=== PATIENT | male | born 1950 | race Caucasian/White ===

== ENCOUNTER 2023-03-11 11:25 | Emergency (ER) | payer MEDICARE, SELFPAY ==
[2023-03-11 11:31] VITALS: BP 181/80; PULSE 78; RESP 16; TEMP 36.6; O2SAT 96
--- NOTE | 2023-03-11 11:59 | ED_ITS ---
HPI - Male Genitourinary General: Chief complaint: Urogenital-Male Stated complaint: urinary trac Time Seen by Provider: 03/11/23 11:50 History of Present Illness: Patient presents to the hospital with complaints of not being able to empty his bladder. Patient states he only dribbles a little bit of time and 5 minutes later is got to dribble again. Patient states he feels like he has pressure all the time but does not empty. This been ongoing problem for about 8 years. Patient is tried Flomax and is talked to his family doctor about this but he does not do well with Flomax or any of the other type of medicines per the patient. Patient has not seen urology. Review of Systems General: Reports: 10 or more systems reviewed and unremarkable except in HPI and below Physical Exam Const: COMMON NORMALS: no acute distress, average body habitus, patient oriented x3, no limitations, healthy appearing, alert and well nourished HENMT: COMMON NORMALS: normocephalic, atraumatic, hearing grossly normal bilaterally, external ears normal, Normal external nose present, moist oral mucous membranes and oropharynx normal HEAD & SCALP: normocephalic and atraumatic NOSE: Normal external nose present EXTERNAL EAR: Yes external ears normal Neck/C-Spine: COMMON NORMALS: no JVD Chest: COMMONS NORMALS: normal inspection of the chest and normal palpation of entire chest wall Resp: COMMON NORMALS: normal respiratory effort, No retractions, No use of accessory muscles and clear to auscultation bilaterally AUSCULTATION: clear to auscultation bilaterally Cardio: COMMON NORMALS: no JVD, regular rate, regular rhythm, S1 normal heart sound present, S2 normal heart sound present, No gallops present (Cardio), No clicks present (Cardio), No murmurs present (Cardio) and No rub (Cardio) RATE: regular rate RHYTHM: regular rhythm HEART SOUNDS: S1 normal heart sound present and S2 normal heart sound present GI: COMMON NORMALS: Normal to inspection, nondistended, normoactive bowel sounds present, Soft to palpation, non-tender, No hepatosplenomegaly present and no masses PALPATION: Yes Soft to palpation and Yes No hepatosplenomegaly present Neuro: COMMON NORMALS: patient oriented x3 SENSORIUM/ORIENTATION: Yes alert Course Vital Signs: Vital signs: Vital Signs Temperature 97.9 F 03/11/23 11:31 Pulse Rate 62 03/11/23 13:35 Respiratory Rate 16 03/11/23 11:31 Blood Pressure 166/88 03/11/23 13:35 Pulse Oximetry 98 03/11/23 13:35 Oxygen Delivery Me thod Room Air 03/11/23 13:35 MDM - Male Medical Decision Making Patient been having urinary retention type problems for many years. Today his postvoid bladder scan revealed 124 cc. We will refer to urology CBC CMP and UA was negative today. Patient's had none of the medicines for urinary retention or BPH work for him. Patient denies wanting a urinary catheter now. We will try to get him into the urologist at [place] at the next available. Differential Diagnosis Likely acute retention of urine; Unlikely urinary tract infection, priapism, urethritis, epididymitis, genital herpes simplex, prostatitis or inguinal hernia Medical Records I reviewed the patient's medical records. Lab Data I reviewed the patient's lab results. 03/11/23 12:06 03/11/23 12:06 Laboratory Results WBC 6.14 10^3/uL (3.29-11.43) 03/11/23 12:06 RBC 5.58 10^6/uL (3.85-5.65) 03/11/23 12:06 Hgb 16.30 g/dL (11.27-16.99) 03/11/23 12:06 Hct 49.7 % (37-53) 03/11/23 12:06 MCV 89.1 fl (82-101) 03/11/23 12:06 MCH 29.2 pg (27-33) 03/11/23 12:06 MCHC 32.8 g/dL (30-55) 03/11/23 12:06 RDW 13.7 % (12.1-15.1) 03/11/23 12:06 Plt Count 212 10^3/cmm (157-399) 03/11/23 12:06 MPV 9.7 fL (7.4-10.4) 03/11/23 12:06 Neut % (Auto) 49.3 % 03/11/23 12:06 Lymph % (Auto) 36.8 % 03/11/23 12:06 [place] % (Auto) 9.4 % 03/11/23 12:06 Eos % (Auto) 3.7 % 03/11/23 12:06 Baso % (Auto) 0.5 % 03/11/23 12:06 Neut # (Auto) 3.02 10^3/uL (1.8-7.7) 03/11/23 12:06 Lymph # (Auto) 2.3 10^3/uL (0.8-4.8) 03/11/23 12:06 [place] # (Auto) 0.6 10^3/uL (0.2-0.9) 03/11/23 12:06 Eos # (Auto) 0.2 10^3/uL (0.0-0.8) 03/11/23 12:06 Baso # (Auto) 0.0 10^3/uL (0.0-0.1) 03/11/23 12:06 Nucleated RBC % (auto) 0 % 03/11/23 12:06 Nucleated RBCs # 0.0 /100WBC 03/11/23 12:06 Sodium 139 mmol/L (136-145) 03/11/23 12:06 Potassium 4.2 mmol/L (3.5-5.1) 03/11/23 12:06 Chloride 107 mmol/L (98-107) 03/11/23 12:06 Carbon Dioxide 22 mmol/L (22-29) 03/11/23 12:06 Anion Gap 14.2 (5-19) 03/11/23 12:06 BUN 25 mg/dL (8-23) H 03/11/23 12:06 Creatinine 0.7 mg/dL (0.7-1.2) 03/11/23 12:06 GFR Calculation Not Reportable 03/11/23 12:06 Glucose 109 mg/dL (65-115) 03/11/23 12:06 Calculated Osmolality 293 mOsm/kg (285-295) 03/11/23 12:06 Calcium 9.3 mg/dL (8.5-10.5) 03/11/23 12:06 Total Bilirubin 0.3 mg/dL (0.15-1.2) 03/11/23 12:06 AST 14 U/L (0-40) 03/11/23 12:06 ALT 16 U/L (0-41) 03/11/23 12:06 Alkaline Phosphatase 50 U/L (40-130) 03/11/23 12:06 Total Protein 7.2 g/dL (6.6-8.7) 03/11/23 12:06 Albumin 4.1 g/dL (3.5-5.2) 03/11/23 12:06 Globulin 3.1 g/dL (1.3-4.6) 03/11/23 12:06 Urine Color Yellow (Yellow) 03/11/23 12:34 Urine Appearance Clear (CLEAR) 03/11/23 12:34 Urine pH 5 (5-7) 03/11/23 12:34 Ur Specific [place] 1.020 (1.005-1.030) 03/11/23 12:34 Urine Protein Neg (Negative) 03/11/23 12:34 Urine Glucose (UA) Norm (Normal) 03/11/23 12:34 Urine Ketones Negative (Negative) 03/11/23 12:34 Urine Blood Neg (Negative) 03/11/23 12:34 Urine Nitrate Negative (Negative) 03/11/23 12:34 Urine Bilirubin Neg (Negative) 03/11/23 12:34 Urine Urobilinogen Neg mg/dL (Negative) 03/11/23 12:34 Ur Leukocyte Esterase Negative (Negative) 03/11/23 12:34 All radiology interpretation(s) finalized by discharge Discharge Plan Discharge Patient Disposition: Home Clinical Impression: Acute retention of urine Condition: Stable Prescriptions: No Action tramadol 50 mg tablet 50 mg PO TID PRN (Reason: Pain) alprazolam 0.5 mg tablet 0.5 mg PO BID PRN (Reason: Anxiety) albuterol sulfate 90 mcg/actuation HFA aerosol inhaler 2 puff INHALATION Q4H PRN (Reason: Shortness Of Breath) sertraline 50 mg tablet 50 mg PO QAM Symbicort 160-4.5 mcg/actuation HFA aerosol inhaler 1 puff INHALATION QAM Discharge Orders: Discharge ED (Routine); Ordered 03/11/23 Ordered By: Stefano Godinez Referrals: Kang Daniels DO [Primary Care Provider] - 1 week Patient Instructions: Urinary Retention in Men (ED) Activity Restrictions/Additional Instructions: Your lab work in the ER was negative. You have been referred to case management to get a referral to a urologist. They will be calling you within the next 1-2 business days if you have not heard from them please feel free to give us a call back. Coding Level of Care Code ED Calender Wind Up Helper for Ashley Pereira
--- NOTE | 2023-03-11 12:06 | PC.PHAR ---
pt states he takes care of his own medications-pt states he uses symbicort 160-4.5mcg 1p qam rx filled 02/15/23 1p bid-pt states he takes no otc medications-pt states only takes the medications entered
[2023-03-11 12:12] LABS: Basophils % 0.5 %; Eosinophils # 0.2 10^3/uL (0.0-0.8); Eosinophils % 3.7 %; Hematocrit 49.7 % (37-53); Lymphocytes # 2.3 10^3/uL (0.8-4.8); Lymphocytes % 36.8 %; Mean Corpuscular HGB Conc 32.8 g/dL (30-55); Mean Corpuscular Hemoglobin 29.2 pg (27-33); Mean Corpuscular Volume 89.1 fl (82-101); Mean Platelet Volume 9.7 fL (7.4-10.4); Monocytes # 0.6 10^3/uL (0.2-0.9); Monocytes % 9.4 %; Neutrophils # 3.02 10^3/uL (1.8-7.7); Neutrophils % 49.3 %; Nucleated Red Blood Cells % 0 %; Platelet Count 212 10^3/cmm (157-399); Red Blood Count 5.58 10^6/uL (3.85-5.65); Red Cell Distribution Width 13.7 % (12.1-15.1); White Blood Count 6.14 10^3/uL (3.29-11.43)
[2023-03-11 12:36] LABS: Alanine Aminotransferase 16 U/L (0-41); Albumin Level 4.1 g/dL (3.5-5.2); Alkaline Phosphatase 50 U/L (40-130); Anion Gap 14.2 (5-19); Aspartate Amino Transferase 14 U/L (0-40); Blood Urea Nitrogen 25 mg/dL (8-23); Calcium 9.3 mg/dL (8.5-10.5); Carbon Dioxide 22 mmol/L (22-29); Chloride 107 mmol/L (98-107); Globulin 3.1 g/dL (1.3-4.6); Glucose 109 mg/dL (65-115); Osmolality Calculated 293 mOsm/kg (285-295); Potassium 4.2 mmol/L (3.5-5.1); Sodium 139 mmol/L (136-145); Total Bilirubin 0.3 mg/dL (0.15-1.2); Total Protein 7.2 g/dL (6.6-8.7)
[2023-03-11 12:38] VITALS: BP 164/88; PULSE 68; O2SAT 95
[2023-03-11 13:03] VITALS: BP 161/85; O2SAT 94
[2023-03-11 13:29] LABS: Add Urine Microscopic? NO; Charge for UA Resulting for Rev
[2023-03-11 13:35] VITALS: BP 166/88; PULSE 62; O2SAT 98
[2023-03-11 13:36] LABS: Glucose Urine UA Norm (Normal); Ketones Urine Negative (Negative); Protein Urine Neg (Negative); Urine Appearance Clear (CLEAR); Urine Color Yellow (Yellow); pH Urine 5 (5-7)
[2023-03-11 13:37] LABS: Bilirubin Urine Neg (Negative); Blood Urine Neg (Negative); Leukocyte Esterase Urine Negative (Negative); Nitrate Urine Negative (Negative); Urobilinogen Urine Neg (Negative)
[2023-03-11 14:13] VITALS: BP 159/83; PULSE 60; O2SAT 98
--- NOTE | 2023-03-26 10:21 | DCPLANNER ---
Message left on 03/17/23 @ 0943 and again today at 1020.
--- NOTE | 2023-04-04 10:43 | DCPLANNER ---
Left a message on [employer] on 03/31/23 at 1104 am. No answer or returned call
--- NOTE | 2023-04-04 10:44 | DCPLANNER ---
Attempted to call patient on 04/04/23 at 1044. Left voicemail
== END 2023-03-11 14:15 | disposition home or self-care (01) ==
PROVIDERS: Emergency Provider Emergency Medicine; PCP Internal Medicine
DX: R33.9 Retention of urine, unspecified (principal)
CPT/HCPCS: 36415; 51798; 80053; 81003; 85025; 99282